=== PATIENT | male | born 1995 | race Two or more races ===

== ENCOUNTER 2017-04-04 09:30 | Emergency (ER) | payer MEDICAID ==
[2017-04-04] MEDS ORDERED: MAG HYDROX/AL HYDROX/SIMETH 30 ML UDC PO STA (10:08)
[2017-04-04] MEDS ORDERED: LIDOCAINE VISCOUS 2% 15 ML UDC MM STA (10:08)
[2017-04-04] MEDS ORDERED: FAMOTIDINE 20 MG/50 ML 50 ML IV ONE ×2 (10:08→10:21)
[2017-04-04] MEDS ORDERED: ONDANSETRON 4 MG/2 ML VIAL IVP STA ×2 (10:08→12:38)
[2017-04-04] MEDS ORDERED: SODIUM CHLORIDE 0.9% 1,000 ML IV ONE (10:08)
--- NOTE | 2017-04-04 10:16 | ED Physician Documentation ---
History of Present Illness - Stated complaint Stated Complaint: ABD PX/VOMITING - Chief complaint Chief Complaint: Abd Pain - Treatment prior to arrival Treatment prior to arrival: hx from pt 21 male s.p appy and [facility] and colonoscopy has been dx with colitis but not crohns UC etc had a mixed drink last night and today has severe upper abd pain and NV s blood no diarrhea no bad food no travel no sick contacts hx kidney stones too but this feels diff Review of Systems Constitutional: denies: Fever, Chills Cardiac: denies: Chest pain / pressure Respiratory: denies: Dyspnea GI: reports: Abdominal Pain, Nausea, Vomiting. denies: Diarrhea, Hematemesis Endocrine: denies: Easy bruising / bleeding Immunocompromised: denies: Immunocompromised PD PAST MEDICAL HISTORY - Past Medical History Past Medical History: Yes Other Past Medical History: Colitis - Past Surgical History Past Surgical History: Yes General: Cholecystectomy, Appendectomy, Colonoscopy - Present Medications Home Medications: Ambulatory Orders Medication Instructions Recorded Confirmed Ondansetron Odt [Zofran] 4 mg TL Q6H PRN #10 tablet 04/04/17 Promethazine [Phenergan] 25 mg PO Q6H PRN #10 tablet 04/04/17 Sucralfate 1 gm PO ACHS #120 tablet 04/04/17 raNITIdine [Zantac] 150 mg PO BID #60 tablet 04/04/17 - Allergies Allergies/Adverse Reactions: Allergies Allergy/AdvReac Type Severity Reaction Status Date / Time Penicillins Allergy Unknown Verified 04/04/17 09:34 - Social History Does the pt smoke?: No Smoking Status: Never smoker PD ED PE NORMAL - Vitals Vital signs reviewed: Yes - Cardiac Cardiac: RRR - Respiratory Respiratory: No respiratory distress, Clear bilaterally - Abdomen Abdomen: Soft, Other (epigastric TTP no rebound or guarding) - Derm Derm: Normal color - Extremities Extremities: No deformity - Neuro Neuro: Alert and oriented X 3 Results - Vitals Vitals: Vital Signs - 24 hr 04/04/17 04/04/17 04/04/17 09:34 10:10 10:34 Temperature 36.8 C 36.5 C Heart Rate 62 79 Respiratory 16 18 Rate Blood Pressure 122/76 116/76 O2 Saturation 100 100 04/04/17 04/04/17 12:31 13:57 Temperature 36.8 C Heart Rate 79 87 Respiratory 15 17 Rate Blood Pressure 134/72 H 113/64 O2 Saturation 98 100 Oxygen O2 Source Room air - Labs Labs: Laboratory Tests 04/04/17 04/04/17 10:15 10:15 WBC 17.3 H RBC 5.90 Hgb 16.1 Hct 47.9 MCV 81.1 MCH 27.3 MCHC 33.7 RDW 13.1 Plt Count 259 MPV 8.0 Neut # 14.5 H Lymph # 2.0 Wilson # 0.6 Eos # 0.1 Baso # 0.1 Absolute Nucleated RBC 0.01 Nucleated RBC % 0.0 Sodium 140 Potassium 3.7 Chloride 103 Carbon Dioxide 25 Anion Gap 12.0 BUN 10 Creatinine 1.0 Estimated GFR (MDRD) 93 Glucose 97 Calcium 9.5 Total Bilirubin 1.4 H AST 31 ALT 38 Alkaline Phosphatase 86 Total Protein 8.3 H Albumin 5.0 Globulin 3.3 Albumin/Globulin Ratio 1.5 Lipase 21 L - Rads (name of study) CT AP c con Radiology: See rad report (no acute process) PD MEDICAL DECISION MAKING - ED course ED course: by hx suspect gastritiis 2/2 EtOH last night but sx severe and unrelieved by pepcid GI cocktail and zofran and WBC [address] which does not show any acute process labs otherwise fine except bili and pt is s/p [facility] will reassure and c with symptomatic meds Departure - Departure Clinical Impression: Gastritis Qualifiers: Gastritis type: unspecified gastritis Chronicity: acute Gastritis bleeding: without bleeding Qualified Code(s): K29.00 - Acute gastritis without bleeding Condition: Good Instructions: ED PUD Vs Gastritis Prescriptions: Ondansetron Odt [Zofran] 4 mg TL Q6H PRN #10 tablet PRN Reason: Nausea / Vomiting Promethazine [Phenergan] 25 mg PO Q6H PRN #10 tablet PRN Reason: vomiting raNITIdine [Zantac] 150 mg PO BID #60 tablet Sucralfate 1 gm PO ACHS #120 tablet Comments: Your labs were fine except for an elevated white blood cell count which can indicate infection or a stress response to illness / pain The CT scan was fine - no perforation, bowel blockage, aneurysm, colitis, stones , tumors, internal bleeding etc. I suspect your pain is due to gastritis or an ulcer possible exacerbated by having a drink last night Given the normal CT scan, I feel it is safe for you to go home - I recommend you take carafate and zantac to help your stomach heal and zofran and phenergan as needed for vomiting. If your symptoms persists, the next step would be to get a scope of your stomach called endoscopy - please call the surgery clinic to schedule this if your symptoms persist Return to the ER if worse - vomiting blood, fever, unable to stay hydrated etc
[2017-04-04] MEDS ORDERED: ONDANSETRON 4 MG/2 ML VIAL ONE ×2 (10:20→13:21)
[2017-04-04 10:21] LABS: BASOPHILS # (AUTO) 0.1 10^3/uL (0.0-0.1); BASOPHILS % (AUTO) 0.3 %; EOSINOPHILS # (AUTO) 0.1 10^3/uL (0.0-0.7); EOSINOPHILS % (AUTO) 0.7 %; HCT - HEMATOCRIT 47.9 % (42.0-52.0); HGB - HEMOGLOBIN 16.1 g/dL (14.0-18.0); LYMPHOCYTES % (AUTO) 11.3 %; MEAN CORPUSCULAR HEMOGLOBIN 27.3 pg (27.0-31.0); MEAN CORPUSCULAR HGB CONC 33.7 g/dL (32.0-36.0); MEAN CORPUSCULAR VOLUME 81.1 fL (80.0-94.0); MONOCYTES # (AUTO) 0.6 10^3/uL (0.0-1.0); MONOCYTES % (AUTO) 3.7 %; NEUTROPHILS # (AUTO) 14.5 10^3/uL (1.5-6.6); RED CELL DISTRIBUTION WIDTH 13.1 % (12.0-15.0); UNCORRECTED WHITE BLOOD COUNT 17.3 x10^3/uL; WHITE BLOOD COUNT 17.3 x10^3/uL (4.8-10.8)
[2017-04-04 10:33] LABS: ALBUMIN/GLOBULIN RATIO 1.5 (1.0-2.2); BILIRUBIN,TOTAL 1.4 mg/dL (0.2-1.0); CALCIUM 9.5 mg/dL (8.5-10.3); POTASSIUM 3.7 mmol/L (3.5-5.0); TOTAL PROTEIN 8.3 g/dL (6.7-8.2)
[2017-04-04] MEDS ORDERED: MAG HYDROX/AL HYDROX/SIMETH 30 ML UDC ONE (10:38)
[2017-04-04] MEDS ORDERED: LIDOCAINE VISCOUS 2% 15 ML UDC MM ONE (10:38)
[2017-04-04] MEDS ORDERED: PROMETHAZINE INJ 25 MG in SODIUM CHLORIDE 0.9% 50 ML IV STA (11:08)
[2017-04-04] MEDS ORDERED: PROMETHAZINE 25 MG/1 ML VIAL ONE ×2 (11:18→11:21)
[2017-04-04] MEDS ORDERED: MORPHINE 2 MG/ML SYRINGE IVP STA ×2 (11:31→12:38)
[2017-04-04] MEDS ORDERED: IOPAMIDOL-300 100 ML VIAL ONE (11:42)
[2017-04-04] MEDS ORDERED: IOPAMIDOL-300 50 ML VIAL ONE (11:42)
[2017-04-04] MEDS ORDERED: MORPHINE 2 MG/ML SYRINGE ONE ×2 (11:43→13:21)
[2017-04-04] MEDS ORDERED: IOPAMIDOL-300 100 ML VIAL IVP ONE (13:18)
[2017-04-04] MEDS ORDERED: IOPAMIDOL-300 50 ML VIAL PO ONE (13:18)
--- NOTE | 2017-04-04 13:49 | CT Preliminary Report ---
Exam: CT ABDOMEN/PELVIS W/ IMPRESSION: 1. No acute abnormality in the abdomen or pelvis. No findings to explain upper abdominal pain. 2. Bilateral nephrolithiasis. [facility] SITE ID: [id number]
--- NOTE | 2017-04-04 13:51 | CT Report ---
EXAM: CT ABDOMEN AND PELVIS EXAM DATE: 04/04/2017 01:21 PM. CLINICAL HISTORY: Upper abd pain, PO and IV con. COMPARISONS: None. TECHNIQUE: Routine helical CT imaging was performed through the abdomen and pelvis. IV contrast: Isov ue 300 100mL. Enteric contrast: No. Reconstructions: Coronal and sagittal. In accordance with CT protocol optimization, one or more of the following dose reduction techniques w ere utilized for this exam: automated exposure control, adjustment of mA and/or KV based on patient s ize, or use of iterative reconstructive technique. FINDINGS: Lung Bases: Within normal limits. Liver: Normal. Gallbladder/Bile Ducts: The gallbladder is surgically absent. Normal postcholecystectomy biliary tree . Spleen: Normal. Pancreas: Normal. Adrenal Glands: Normal. Kidneys: Bilateral, punctate, nonobstructing renal calculi. No hydronephrosis or hydroureter. Peritoneal Cavity/Bowel: No ascites or pneumoperitoneum. No bowel obstruction or abnormal stool burde n. The appendix is not visualized and may be surgically absent. No ascites or pneumoperitoneum. Pelvic Organs: Normal. The bladder and visualized pelvic organs are within normal limits. Vasculature: Normal. Bones: No significant abnormality. Other: None. IMPRESSION: 1. No acute abnormality in the abdomen or pelvis. No findings to explain upper abdominal pain. 2. Bilateral nephrolithiasis. [facility] Referring Provider Line: [phone] SITE ID: [id number]
[2017-04-04 13:57] VITALS: BP 113/64
== END 2017-04-04 14:30 | disposition home or self-care (01) ==
LOC: ED 09:30
DX: K29.00 Acute gastritis without bleeding (principal)
CPT/HCPCS: 36415; 74177; 80053; 83690; 85025; 96361; 96365; 96366; 96375; 99283; 99284; A9270; J2270; J7040; Q9967

== ENCOUNTER 2017-04-28 12:51 | Outpatient (CLI) | payer MEDICAID | END 2017-04-28 12:52 | disposition critical access hospital (66) | LOC: EMS 12:51 | PROVIDERS: ATTEND Surgery | DX: R10.9 Unspecified abdominal pain (principal); R11.2 Nausea with vomiting, unspecified | CPT/HCPCS: A0425; A0427 ==

== ENCOUNTER 2017-04-28 13:05 | Emergency (ER) | payer MEDICAID ==
[2017-04-28] MEDS ORDERED: HALOPERIDOL 5 MG/ML VIAL IVP ONE (13:11)
[2017-04-28] MEDS ORDERED: MAG HYDROX/AL HYDROX/SIMETH 30 ML UDC PO STA (13:11)
[2017-04-28] MEDS ORDERED: LIDOCAINE VISCOUS 2% 15 ML UDC MM STA (13:11)
[2017-04-28] MEDS ORDERED: SODIUM CHLORIDE 0.9% 1,000 ML IV ONE (13:11)
--- NOTE | 2017-04-28 13:14 | ED Physician Documentation ---
PD HPI ABD PAIN - Stated complaint Stated Complaint: SYNCOPE/ VOMITING - Chief complaint Chief Complaint: Abd Pain - History obtained from History obtained from: Patient - History of Present Illness Timing - onset: Other (21-year-old gentleman status post remote cholecystectomy and appendectomy presents with acute upper abdominal pain starting since last night with vomiting with occasional blood streaks, no diarrhea. This is similar to the episode he had 2 weeks ago when he was seen here. Workup demonstrated a normal CAT scan, very mildly elevated bilirubin. He does smoke marijuana daily. He has no sick contacts or recent travel.) Review of Systems Ten Systems: 10 systems reviewed and negative Constitutional: reports: Sweats. denies: Fever, Chills Nose: denies: Rhinorrhea / runny nose, Congestion GI: reports: Abdominal Pain, Nausea, Vomiting. denies: Diarrhea PD PAST MEDICAL HISTORY - Past Medical History Past Medical History: Yes GI: GERD Other Past Medical History: liver mass - Past Surgical History Past Surgical History: Yes General: Cholecystectomy, Appendectomy, Colonoscopy - Present Medications Home Medications: Ambulatory Orders Medication Instructions Recorded Confirmed Ondansetron Odt [Zofran] 4 mg TL Q6H PRN #10 tablet 04/04/17 Promethazine [Phenergan] 25 mg PO Q6H PRN #10 tablet 04/04/17 Sucralfate 1 gm PO ACHS #120 tablet 04/04/17 raNITIdine [Zantac] 150 mg PO BID #60 tablet 04/04/17 Clarithromycin [Biaxin] 500 mg PO BID #28 tablet 04/28/17 HYDROcod/ACETAM 5/325 [Berkley 5/325] 1 - 2 ea PO Q6H PRN #10 tablet 04/28/17 Metronidazole 500 mg PO BID #28 tablet 04/28/17 Omeprazole [PriLOSEC] 20 mg PO BID #28 capsule 04/28/17 Promethazine [Phenergan] 25 - 50 mg PO Q6H PRN #15 tab 04/28/17 - Allergies Allergies/Adverse Reactions: Allergies Allergy/AdvReac Type Severity Reaction Status Date / Time Penicillins Allergy Unknown Verified 04/28/17 13:10 - Social History Does the pt smoke?: No Smoking Status: Never smoker Does the pt drink ETOH?: Yes Does the pt have substance abuse?: Yes Substance Use and Type: Marijuana - Immunizations Immunizations are current?: No - POLST Patient has POLST: No PD ED PE NORMAL - Vitals Vital signs reviewed: Yes - General General: Alert and oriented X 3, Other (Sweaty, shaky) - HEENT HEENT: PERRL, EOMI - Neck Neck: Supple, no meningeal sign, No bony TTP - Cardiac Cardiac: RRR, No murmur - Respiratory Respiratory: No respiratory distress, Clear bilaterally - Abdomen Abdomen: Normal bowel sounds, Soft, Non tender - Derm Derm: No rash - Neuro Neuro: Alert and oriented X 3, Normal speech - Psych Psych: Normal mood, Normal affect Results - Vitals Vitals: Vital Signs - 24 hr 04/28/17 04/28/17 04/28/17 13:06 13:26 13:38 Temperature 36.8 C Heart Rate 77 70 73 Respiratory 18 16 20 Rate Blood Pressure 115/62 117/82 H 117/68 O2 Saturation 100 100 100 04/28/17 04/28/17 14:19 14:57 Temperature Heart Rate 76 71 Respiratory 18 18 Rate Blood Pressure 115/61 122/57 L O2 Saturation 94 97 Oxygen O2 Source Room air - Labs Labs: Laboratory Tests 04/28/17 04/28/17 13:30 13:30 Sodium 140 Potassium 3.7 Chloride 106 Carbon Dioxide 21 Anion Gap 13.0 BUN 14 Creatinine 1.0 Estimated GFR (MDRD) 93 Glucose 103 H Calcium 9.5 Total Bilirubin 2.8 H AST 26 ALT 26 Alkaline Phosphatase 58 Total Protein 7.8 Albumin 4.9 Globulin 2.9 Albumin/Globulin Ratio 1.7 Lipase 22 H. pylori IgG Antibody POSITIVE H PD MEDICAL DECISION MAKING - ED course ED course: 21-year-old gentleman with acute upper abdominal pain with vomiting. CT scan a couple weeks ago was normal. He improved greatly with medications here and was found to be H. pylori positive will be treated for same. Bilirubin remains elevated in the setting of prior cholecystectomy and no other enzyme abnormalities suggesting potentially a Gilbert phenomenon. Departure - Departure Disposition: 01 Home, Self Care Clinical Impression: Helicobacter pylori (H. pylori) infection Abdominal pain Qualifiers: Abdominal location: upper abdomen, unspecified Qualified Code(s): R10.10 - Upper abdominal pain, unspecified Condition: Good Record reviewed to determine appropriate education?: Yes Instructions: Abdominal Pain, ED Peptic Ulcer H Pylori Infec Prescriptions: Clarithromycin [Biaxin] 500 mg PO BID #28 tablet HYDROcod/ACETAM 5/325 [Berkley 5/325] 1 - 2 ea PO Q6H PRN #10 tablet PRN Reason: Pain Metronidazole 500 mg PO BID #28 tablet Omeprazole [PriLOSEC] 20 mg PO BID #28 capsule Promethazine [Phenergan] 25 - 50 mg PO Q6H PRN #15 tab PRN Reason: Nausea / Vomiting Comments: Follow-up with your doctor, here she may want to do repeat testing for you put back to pylori to make sure that it is gone. Return if worse. Do not drink alcohol while on the antibiotics. Avoid anti-inflammatory medications such as naproxen or ibuprofen. Discharge Date/Time: 04/28/17 14:59
[2017-04-28] MEDS ORDERED: LIDOCAINE VISCOUS 2% 15 ML UDC MM ONE (13:33)
[2017-04-28] MEDS ORDERED: MAG HYDROX/AL HYDROX/SIMETH 30 ML UDC ONE (13:33)
[2017-04-28] MEDS ORDERED: HALOPERIDOL 5 MG/ML VIAL ONE (13:39)
[2017-04-28 13:44] LABS: H. PYLORI IGG ANTIBODY POSITIVE (Negative); HPYLORI NEG QC Negative (Negative); HPYLORI POS QC POSITIVE (Positive)
[2017-04-28 13:45] LABS: ALBUMIN/GLOBULIN RATIO 1.7 (1.0-2.2); BILIRUBIN,TOTAL 2.8 mg/dL (0.2-1.0); CALCIUM 9.5 mg/dL (8.5-10.3); POTASSIUM 3.7 mmol/L (3.5-5.0); TOTAL PROTEIN 7.8 g/dL (6.7-8.2)
[2017-04-28] MEDS ORDERED: PROMETHAZINE INJ 25 MG in SODIUM CHLORIDE 0.9% 50 ML IV STA (13:49)
[2017-04-28] MEDS ORDERED: HYDROmorphone 1 MG/ML SYRINGE IVP STA (13:49)
[2017-04-28] MEDS ORDERED: PANTOPRAZOLE 40 MG VIAL IVP STA (13:51)
[2017-04-28] MEDS ORDERED: HYDROmorphone 1 MG/ML SYRINGE ONE (14:06)
[2017-04-28] MEDS ORDERED: PROMETHAZINE 25 MG/1 ML VIAL ONE (14:06)
[2017-04-28] MEDS ORDERED: PANTOPRAZOLE 40 MG VIAL ONE (14:07)
[2017-04-28] MEDS ORDERED: HYDROcod/ACET 5/325 Prepack 6 PO STA (14:26)
[2017-04-28] MEDS ORDERED: ONDANSETRON ODT 4 MG Prepack 2 TL STA (14:26)
[2017-04-28] MEDS ORDERED: HYDROcod/ACET 5/325 Prepack 6 PO ONE (14:39)
[2017-04-28] MEDS ORDERED: ONDANSETRON ODT 4 MG Prepack 2 TL ONE (14:39)
[2017-04-28 14:59] VITALS: BP 122/57
== END 2017-04-28 14:59 | disposition home or self-care (01) ==
LOC: EDUNIT# → ED 13:05
DX: B96.81 Helicobacter pylori [H. pylori] as the cause of diseases classified elsewhere (principal); R10.10 Upper abdominal pain, unspecified; K21.9 Gastro-esophageal reflux disease without esophagitis
CPT/HCPCS: 36415; 80053; 83690; 87339; 96365; 96375; 99284; A9270; J1170; J7040